=== PATIENT | female | born 2000 | race Caucasian/White ===

== ENCOUNTER 2023-09-03 10:45 | Outpatient (CLI) | payer OTHER, SELFPAY ==
[2023-09-03 12:05] LABS: Basophils Absolute Auto 0.1 K/mm3 (0.0-0.1); Basophils Percent Auto 0.6 % (0.2-1.2); Eosinophils Absolute Auto 0.2 K/mm3 (0-0.3); Hemoglobin 14.7 g/dL (12.0-15.0); Immature Granulocyte Absolute 0.05 K/mm3 (0.00-0.031); Immature Granulocyte Percent A 0.4 % (0-0.5); Lymphocytes Absolute Auto 3.48 K/mm3 (0.9-3.2); Lymphocytes Percent Auto 28.4 % (18.3-44.2); Mean Corpuscular HGB Conc 32.7 g/dl (32-36); Mean Corpuscular Hemoglobin 30.2 pg (26-34); Mean Corpuscular Volume 92.4 fl (80-100); Mean Platelet Volume 10.3 fl (7.4-10.4); Monocytes Absolute Auto 0.6 K/mm3 (0.1-0.6); Monocytes Percent Auto 4.8 % (2.6-8.5); Neutrophils Absolute Auto 7.8 K/mm3 (1.3-6.7); Neutrophils Percent Auto 63.8 % (45.5-73.1); Platelet Count Result 305 k/mm3 (150-375); Red Blood Count 4.87 M/mm3 (4.2-5.4); White Blood Count 12.2 K/mm3 (4.5-10.0)
[2023-09-03 12:12] LABS: Alanine Aminotransferase 34 U/L (6-35); Albumin Level 4.1 g/dL (3.5-5.1); Alkaline Phosphatase 103 U/L (38-126); Anion Gap 6 mmol/L (8-16); Aspartate Amino Transferase 34 U/L (14-36); Bilirubin,Total 0.4 mg/dL (0.2-1.3); Blood Urea Nitrogen 10 mg/dL (7-17); Calcium 8.9 mg/dL (8.4-10.2); Carbon Dioxide 27 mmol/L (22-30); Chloride 104 mmol/L (98-107); Estimated Glomerular Filt Rate > 60; Glucose 105 mg/dL (65-110); Potassium 3.9 mmol/L (3.4-5.0); Sodium 137 mmol/L (137-145)
[2023-09-03 12:28] LABS: Free T4 Free Thyroxine 1.05 ng/mL (0.78-2.19)
[2023-09-03 12:29] LABS: Vitamin D 25 Hydroxy < 12.8 ng/mL
[2023-09-03 12:42] LABS: Thyroid Stimulating Hormone 0.877 uIU/mL (0.465-4.680)
== END 2023-09-03 10:46 | disposition home or self-care (01) ==
LOC: ANHGOSHLAB 10:47
PROVIDERS: PCP Internal Medicine; Visit Provider Nurse Practitioner
DX: F32.A Depression, unspecified (principal); F41.9 Anxiety disorder, unspecified
CPT/HCPCS: 36415; 80053; 82306; 84439; 84443; 84481; 85025

== ENCOUNTER 2023-10-29 09:50 | Outpatient (CLI) | payer OTHER, SELFPAY ==
[2023-10-29 19:16] LABS: Cholesterol 166 mg/dL (0-200); HDL Direct 57 mg/dL; Triglycerides 71 mg/dL (<150)
[2023-10-29 19:32] LABS: LDL Cholesterol Direct 93 mg/dL
[2023-10-29 21:23] LABS: Hemoglobin A1C 5.9 % (<5.7)
[2023-10-31 12:30] LABS: DHEA-Sulfate 291 mcg/dL (18-391)
[2023-11-01 05:24] LABS: Insulin Level Total 37.6 uIU/mL (<=18.4)
[2023-11-01 12:53] LABS: Testosterone Total 83 ng/dL (2-45)
[2023-11-01 15:56] LABS: FSH 6.7 mIU/mL (***); Progesterone 0.4 ng/mL (***); Prolactin 10.3 ng/mL (***)
[2023-11-05 17:16] LABS: Free Insulin 46.7 uIU/mL (1.5-14.9)
[2023-11-06 01:01] LABS: Estradiol, Ultrasensitive 49 pg/mL
== END 2023-10-29 09:51 | disposition home or self-care (01) ==
LOC: ANHGOSHLAB 09:51
PROVIDERS: PCP Internal Medicine; Visit Provider Obstetrics & Gynecology
DX: N92.6 Irregular menstruation, unspecified (principal); E66.9 Obesity, unspecified
CPT/HCPCS: 36415; 80061; 82627; 82670; 83001; 83036; 83498; 83525; 83527; 84144; 84146; 84403

== ENCOUNTER 2024-12-26 13:39 | Outpatient (CLI) | payer OTHER, SELFPAY ==
--- OUTSIDE RECORDS SUMMARY | 2024-12-26 15:05 | XMS_ITS | Clinical Summary ---
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 Name Role Phone Unavailable Primary Care Provider Unavailabl e Active Problems No known active problems Encounters Date Type Department Care Team Description 12/13/2024 External Device Data [facility] Provider, Abstract 11/19/2024 External Device Data [facility] Provider, Abstract 11/19/2024 External Device Data [facility] Provider, Abstract 11/16/2024 External Device Data [facility] Provider, Abstract 11/02/2024 External Device Data [facility] Provider, Abstract 10/12/2024 External Device Data [facility] Provider, Abstract 10/06/2024 External Device Data [facility] Provider, Abstract from Last 3 Months Social History Tobacco Use Types Packs/Day Years Used Date Smoking Tobacco: Never Assessed Comments Unknown Sex and Gender Information Value Date Recorded Sex Assigned at Not on file 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 Gender Identity Not on file Sexual Orientation Not on file Last Filed Vital Signs Vital Sign Reading Time Taken Comments Blood Pressure 124/72 01/29/2024 11:02 AM CDT Pulse - - Temperature - - Respiratory Rate - - Oxygen Saturation - - Inhaled Oxygen Concentration - - Weight 87.5 kg (193 lb) 01/29/2024 11:02 AM CDT Height 154.9 cm (5' 1 ) 01/29/2024 11:02 AM CDT Body Mass Index 36.47 01/29/2024 11:02 AM CDT Plan of Treatment Health Maintenance Due Date Last Done Comments HPV VACCINES (1 - 3-dose series) 2013 DTAP/TDAP/TD VACCINES (1 - Tdap) 2017 HEPATITIS B VACCINES (1 of 3 - 19+ 3-dose series) 2017 CERVICAL CANCER SCREENING 2019 HPV/Cotest (21-29) 2019 PAP SMEAR 2019 PAP SMEAR 2019 INFLUENZA VACCINE (#1) 2024 PNEUMOCOCCAL VACCINE 0-49 YEARS Aged Out No longer eligible based on patient's age to complete this topic Insurance ALLEGIANCE OPEN ACCESS ALLEGIANCE OPEN ACCESS
[2024-12-26 18:59] LABS: Basophils Absolute Auto 0.1 K/mm3 (0.0-0.1); Basophils Percent Auto 0.6 % (0.2-1.2); Eosinophils Absolute Auto 0.4 K/mm3 (0-0.3); Eosinophils Percent Auto 3.1 % (0-4.4); Hematocrit 44.5 % (37.0-47.0); Hemoglobin 14.7 g/dL (12.0-15.0); Immature Granulocyte Absolute 0.05 K/mm3 (0.00-0.031); Immature Granulocyte Percent A 0.4 % (0-0.5); Lymphocytes Absolute Auto 4.42 K/mm3 (0.9-3.2); Lymphocytes Percent Auto 34.8 % (18.3-44.2); Mean Corpuscular Volume 90.8 fl (80-100); Monocytes Absolute Auto 0.9 K/mm3 (0.1-0.6); Monocytes Percent Auto 7.1 % (2.6-8.5); Neutrophils Absolute Auto 6.9 K/mm3 (1.3-6.7); Platelet Count Result 325 k/mm3 (150-375); Red Cell Distribution Width 12.3 % (11.5-14.5); White Blood Count 12.7 K/mm3 (4.5-10.0)
[2024-12-26 20:42] LABS: Alanine Aminotransferase 23 U/L (6-35); Albumin Level 4.1 g/dL (3.5-5.1); Alkaline Phosphatase 93 U/L (38-126); Anion Gap 8 mmol/L (4-12); Aspartate Amino Transferase 48 U/L (14-36); Bilirubin,Total 0.3 mg/dL (0.2-1.3); Blood Urea Nitrogen 12 mg/dL (7-17); Calcium 9.2 mg/dL (8.4-10.2); Carbon Dioxide 27 mmol/L (22-30); Chloride 104 mmol/L (98-107); Estimated Glomerular Filt Rate > 60; Glucose 108 mg/dL (65-110); Potassium 4.5 mmol/L (3.4-5.0); Sodium 139 mmol/L (137-145)
[2024-12-26 20:58] LABS: Vitamin D 25 Hydroxy 19.8 ng/mL
[2024-12-26 22:07] LABS: Hemoglobin A1C 5.5 % (<5.7)
[2024-12-29 05:34] LABS: Immunoglobulin A 278 mg/dL (47-310); TTG IGA AB <1.0 U/mL
== END 2024-12-26 13:40 | disposition home or self-care (01) ==
LOC: ANHGOSHLAB 13:40
PROVIDERS: PCP Internal Medicine; Visit Provider Clinical Nurse Specialist
DX: I10 Essential (primary) hypertension (principal); E55.9 Vitamin D deficiency, unspecified; D72.829 Elevated white blood cell count, unspecified; R73.01 Impaired fasting glucose; R10.84 Generalized abdominal pain; Z13.228 Encounter for screening for other metabolic disorders
CPT/HCPCS: 36415; 80053; 82306; 82784; 83036; 83516; 84443; 85025

== ENCOUNTER 2025-01-02 14:51 | Outpatient (CLI) | payer OTHER, SELFPAY ==
--- OUTSIDE RECORDS SUMMARY | 2025-01-02 16:50 | XMS_ITS | Clinical Summary ---
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
[2025-01-02 19:36] LABS: Basophils Absolute Auto 0.1 K/mm3 (0.0-0.1); Basophils Percent Auto 0.6 % (0.2-1.2); Eosinophils Absolute Auto 0.3 K/mm3 (0-0.3); Eosinophils Percent Auto 2.5 % (0-4.4); Hematocrit 44.6 % (37.0-47.0); Hemoglobin 14.8 g/dL (12.0-15.0); Immature Granulocyte Absolute 0.05 K/mm3 (0.00-0.031); Immature Granulocyte Percent A 0.4 % (0-0.5); Lymphocytes Absolute Auto 3.64 K/mm3 (0.9-3.2); Lymphocytes Percent Auto 26.3 % (18.3-44.2); Mean Corpuscular HGB Conc 33.2 g/dl (32-36); Mean Corpuscular Hemoglobin 29.8 pg (26-34); Mean Corpuscular Volume 89.7 fl (80-100); Mean Platelet Volume 10.5 fl (7.4-10.4); Monocytes Absolute Auto 0.8 K/mm3 (0.1-0.6); Monocytes Percent Auto 5.6 % (2.6-8.5); Neutrophils Percent Auto 64.6 % (45.5-73.1); Platelet Count Result 335 k/mm3 (150-375); Red Blood Count 4.97 M/mm3 (4.2-5.4); Red Cell Distribution Width 12.4 % (11.5-14.5); White Blood Count 13.8 K/mm3 (4.5-10.0)
[2025-01-02 19:44] LABS: CRP 0.7 mg/dL (<1.0)
[2025-01-03 03:19] LABS: Erythrocyte Sedimentation Rate 14 mm/hr (0-20)
== END 2025-01-02 14:52 | disposition home or self-care (01) ==
LOC: ANHGOSHLAB 14:52
PROVIDERS: PCP Clinical Nurse Specialist; Visit Provider Clinical Nurse Specialist
DX: D72.829 Elevated white blood cell count, unspecified (principal); I10 Essential (primary) hypertension; E88.819 Insulin resistance, unspecified; R10.84 Generalized abdominal pain; Z13.228 Encounter for screening for other metabolic disorders
CPT/HCPCS: 36415; 85025; 85652; 86140

== ENCOUNTER 2025-04-04 11:18 | Emergency (ER) | payer OTHER, SELFPAY ==
[2025-04-04 11:34] VITALS: BP 140/83; PULSE 83; RESP 16; TEMP 36.2; O2SAT 99
--- NOTE | 2025-04-04 12:55 | ED.NAVMDI ---
HPI - Nausea/Vomiting/Diarrhea General Chief complaint: Nausea/Vomiting/Diarrhea Stated complaint: Nausea,Diarrhea,Vomiting,Headache Time Seen by Provider: 04/04/25 12:20 24-year-old female Presents Express Care complaining of nausea, vomiting, diarrhea for 1 week. Patient said 1 week ago she ate frozen chicken that she cooked and develops symptoms after that. Patient reports having abdominal cramping. Patient denies any abdominal pain, fevers, body aches, chills. Patient last vomited approximately for hours ago. Patient has been able to keep fluids down since vomiting. Patient said his only vomited 3 to 4 times. Patient reports loose stools. Patient denies any blood or mucus in stools. Patient has not tried any pglx-oho-[id number] for relief. Patient denies recent travel outside the country. Source: patient and RN notes reviewed Mode of arrival: ambulatory Limitations: no limitations Related Data Allergies Allergy/AdvReac Type Severity Reaction Status Date / Time No Known Allergies Allergy Verified 04/04/25 11:46 Review of Systems Review of Systems: CONSTITUTIONAL: Denies fever, chills, body aches, or sweats. EYES: Denies visual changes, redness, or discharge. ENT: Denies rhinorrhea, congestion, sore throat, or otalgia. CARDIOVASCULAR: Denies chest pain, palpitations, or edema. RESPIRATORY: Denies cough or dyspnea. GASTROINTESTINAL: Denies abdominal pain, bloody stools, hematochezia. Positive for nausea, vomiting, and diarrhea. GENITOURINARY: Denies dysuria or hematuria. SKIN: Denies rash or itching. MUSCULOSKELETAL: Denies back pain, joint pain, or myalgia. NEUROLOGIC: Denies headache, numbness, or weakness. PSYCHIATRIC: Denies anxiety or depression. All other systems reviewed are negative, except as documented in HPI. [facility] Past Medical History Medical History Hospital discharge follow-up Encounter for completion of form with patient PCOS (polycystic ovarian syndrome) Anxiety Hard of hearing Hypertension Surgical History Surgical History History of placement of ear tubes 1999 Family History Family History Mother Hypertension Father Hypertension Heart disease Hard of hearing Diabetes mellitus Social History Social History Smoking status: Never smoker Alcohol intake: never Substance use: never Substance use type: does not use Do You Feel Safe in your Home?: Yes Lack of Transportation: No Lack of Food: Sometimes True Current Housing: I Have Housing Concerned About Future Housing: No Difficulty Paying Gas/Electric Bills: No Difficulty Paying for Meds: No Currently Unemployed: No Education: High School Diploma/GED Difficulty w/ Childcare or Family Care: No Living arrangements: with family Occupation/Education: occupation Additional occupation/education comments: [employer] Gender identity (if verbalized by the patient): Female Sexual Orientation (if Verbalized by the Patient): Straight or Heterosexual Exam Narrative: GENERAL: This is a well-nourished, well-developed adult, in no apparent distress. They are non ill-appearing, nontoxic appearing. HEAD: normocephalic, atraumatic. EYES: Sclera clear/white. Vision is grossly intact. Conjunctiva normal bilaterally. Extraocular movements intact. EARS: External ears normal, Hearing grossly intact. NOSE: External nose normal THROAT: Mucous membranes moist NECK: Normal range of motion CARDIOVASCULAR: Regular rate and rhythm. Normal S1-S2. Clicks, gallops, murmurs, or rubs. RESPIRATORY: Respiratory rate normal, respiratory effort nonlabored, no respiratory distress. Lungs are clear to auscultation. Lung sounds equal bilaterally. No adventitious lung sounds. GASTROINTESTINAL: Abdomen soft, flat, non-tender, nondistended. Bowel sounds are active. No hepato-splenomegaly, or palpable masses. No guarding or rigidity. No rebound tenderness. SKIN: warm, Dry, intact with no suspicious lesions or rash, good texture and turgor. NEURO: awake, alert, and oriented to person, place and time. There were no obvious focal neurologic abnormalities. EXTREMITIES: No joint tenderness, effusion, or edema noted. BACK: Nontender without deformity. No CVA tenderness. Course Course Emergency Course: Portions of this record may have been created with voice recognition software Level of Care: Express Care Visit Vital Signs Vital signs: Vital Signs Temperature 97.2 F L 04/04/25 11:34 Pulse Rate 83 04/04/25 11:34 Respiratory Rate 16 04/04/25 11:34 Blood Pressure 140/83 04/04/25 11:34 Pulse Oximetry 99 04/04/25 11:34 Temperature 97.2 F L 04/04/25 11:34 Pulse Rate 83 04/04/25 11:34 Respiratory Rate 16 04/04/25 11:34 Blood Pressure 140/83 04/04/25 11:34 Pulse Oximetry 99 04/04/25 11:34 MDM - Nausea/Vomiting/Diarrhea MDM Narrative Medical decision making narrative: Symptoms likely has a gastroenteritis. Will prescribe Zofran as needed for nausea and vomiting. Recommend Pepto-Bismol to help with diarrhea. Patient does not appear clinically dehydrated. Patient has been able to keep fluids down. Discussed physical exam findings. Advised supportive measures and signs/symptoms to go to the ER. Pt is appropriate for outpt treatment and f/u. Differential Diagnosis Differential diagnosis: Likely traveler's diarrhea, food poisoning, gastroenteritis and dehydration Discharge Plan Discharge Clinical Impression: Nausea vomiting and diarrhea Patient Disposition: Home Condition: Stable Instructions: Gastroenteritis (ED) Additional Instructions: It is likely you have gastroenteritis. You may take Pepto-Bismol as needed for diarrhea. This may make your stool black/green. Recommend hydration with plenty of fluids electrolyte supplementation such as Pedialyte. Follow-up PCP in 3-5 days. You may take Zofran as needed for nausea or vomiting. Your unable to keep anything down, he developed abdominal pain, fevers, uncontrollable diarrhea, concerns of dehydration, or any other concerns please go to the ER immediately. Patient Language: Citizen Of [place] Prescriptions: New ondansetron 4 mg tablet,disintegrating 4 mg PO Q8H PRN (Reason: nausea and vomiting) Qty: 12 0RF Follow-up/Referrals: Abi Coyne FNP-C [Primary Care Provider] - Time of Disposition: 12:22
== END 2025-04-04 12:56 | disposition home or self-care (01) ==
PROVIDERS: PCP Clinical Nurse Specialist
DX: R11.2 Nausea with vomiting, unspecified (principal); R19.7 Diarrhea, unspecified; I10 Essential (primary) hypertension; E28.2 Polycystic ovarian syndrome
CPT/HCPCS: 99213; G0463

== ENCOUNTER 2025-05-26 15:58 | Emergency (ER) | payer OTHER, SELFPAY ==
[2025-05-26 16:09] VITALS: BP 144/95; PULSE 89; RESP 16; TEMP 36.6; O2SAT 99
--- NOTE | 2025-05-26 17:12 | ED_ITS ---
HPI - URI/Sore Throat General Chief Complaint: Upper Respiratory Infection Stated Complaint: SINUS/CHEST CONGESTION Source: patient and RN notes reviewed Mode of arrival: ambulatory Limitations: no limitations History of Present Illness HPI Narrative: 24-year-old female presents Express Care complaining of upper respiratory symptoms for last 5 days. Patient reports cough, congestion, wheezing, chest congestion, body aches, chills, and runny nose. Denies any chest pain or difficulty breathing, earache my nausea, vomiting, diarrhea, abdominal pain, or any other symptoms. Patient tried giyn-cym-tawcntn cold/flu medication without relief. Patient denies any significant past medical history. Patient denies smoking. Related Data Allergies Allergy/AdvReac Type Severity Reaction Status Date / Time No Known Allergies Allergy Verified 05/26/25 16:44 Review of Systems Review of Systems: CONSTITUTIONAL: Denies fever, or sweats. As for body aches and chills. EYES: Denies visual changes, redness, or discharge. ENT: Positive for rhinorrhea, congestion Negative sore throat or otalgia. CARDIOVASCULAR: Denies chest pain, palpitations, dizziness, lightheadedness or edema. RESPIRATORY: Positive cough wheezing. Negative for dyspnea. GASTROINTESTINAL: Denies abdominal pain, nausea, vomiting, or diarrhea. GENITOURINARY: Denies dysuria or hematuria. SKIN: Denies rash or itching. MUSCULOSKELETAL: Denies back pain, joint pain, or myalgia. NEUROLOGIC: Denies headache, numbness, loss of consciousness or weakness. PSYCHIATRIC: Denies anxiety or depression. All other systems reviewed are negative, except as documented in HPI. [facility] Past Medical History Medical History Hospital discharge follow-up Encounter for completion of form with patient PCOS (polycystic ovarian syndrome) Anxiety Hard of hearing Hypertension Surgical History Surgical History History of placement of ear tubes 1999 Family History Family History Mother Hypertension Father Hypertension Heart disease Hard of hearing Diabetes mellitus Social History Social History Smoking status: Never smoker Alcohol intake: never Substance use: never Substance use type: does not use Do You Feel Safe in your Home?: Yes Lack of Transportation: No Lack of Food: Sometimes True Current Housing: I Have Housing Concerned About Future Housing: No Difficulty Paying Gas/Electric Bills: No Difficulty Paying for Meds: No Currently Unemployed: No Education: High School Diploma/GED Difficulty w/ Childcare or Family Care: No Living arrangements: with family Occupation/Education: occupation Additional occupation/education comments: [employer] Gender identity (if verbalized by the patient): Female Sexual Orientation (if Verbalized by the Patient): Straight or Heterosexual Comments At the time of my signature, I reviewed and agree with the nursing past medical, surgical, social, and family history. There is no relevant family history pertinent to the patient complaint. Exam Narrative: GENERAL: This is a well-nourished, well-developed adult, in no apparent distress. They are non ill-appearing, nontoxic appearing. HEAD: normocephalic, atraumatic. EYES: Sclera clear/white. Conjunctiva normal. Vision is grossly intact. Extraocular movements intact EARS: External ears normal, auditory canals clear and without drainage, TMs normal without perforation. Hearing grossly intact. NOSE: External nose normal with no obvious nasal discharge, nasal turbinates erythematous, with clear rhinorrhea. THROAT: Mucous membranes moist, posterior pharynx boggy with without erythema. Uvula midline. Postnasal drip present. NECK: Neck supple, non-tender without lymphadenopathy, masses or thyromegaly. CARDIOVASCULAR: Regular rate and rhythm without murmurs, gallops, or rubs. RESPIRATORY: Clear to auscultation. Breath sounds equal bilaterally. No wheezes, rales, or rhonchi. Respiratory rate normal, respiratory effort nonlabored, no respiratory distress SKIN: warm, Dry, intact with no suspicious lesions or rash, good texture and turgor. NEURO: awake, alert, and oriented to person, place and time. There were no o bvious focal neurologic abnormalities. EXTREMITIES: No joint tenderness, effusion, or edema noted. Course Course Emergency Course: Portions of this record may have been created with voice recognition software Level of Care: Express Care Visit Vital Signs Vital signs: Vital Signs Temperature 98 F 05/26/25 16:09 Pulse Rate 89 05/26/25 16:09 Respiratory Rate 16 05/26/25 16:09 Blood Pressure 144/95 H 09/12/25 16:09 Pulse Oximetry 99 05/26/25 16:09 Temperature 98 F 05/26/25 16:09 Pulse Rate 89 05/26/25 16:09 Respiratory Rate 16 05/26/25 16:09 Blood Pressure 144/95 H 05/26/25 16:09 Pulse Oximetry 99 05/26/25 16:09 Oxygen Delivery Room Air 05/26/25 16:45 Reviewed MDM - URI/Sore Throat MDM Narrative Medical decision making narrative: Patient likely has a viral bronchitis. Given severity of symptoms will give her course of Medrol Dosepak. Will also prescribe benzonatate tablets as needed for cough. Discussed physical exam findings. Advised supportive measures and signs/symptoms to go to the ER. Pt is appropriate for outpt treatment and f/u. Differential Diagnosis Differential diagnosis: Likely upper respiratory infection, sinusitis, viral infection and bronchitis Critical Care Time Critical Care Time Critical Care Time: No Discharge Plan Discharge Clinical Impression: Bronchitis Patient Disposition: Home Condition: Stable Instructions: Acute Bronchitis (ED) Additional Instructions: Take Medrol Dosepak as directed. Take benzonatate tablets as needed for cough. Recommend Flonase spray 2 sprays each nostril daily for the next week You may take Zyrtec as needed for congestion. Follow instructions on the bottle. You may take ibuprofen 600 mg to 800 mg every 6-8 hours. Do not exceed more than 800 mg of ibuprofen per dose. Do not exceed more than 3200 mg ibuprofen in a day. You may take up to 1000 mg Tylenol every 6-8 hours. Do not exceed 1000 mg per dose, do exceed more than 4000 mg of Tylenol in a day. Symptomatic treatment includes: rest, fluids, and increase humidity of the air at home. Follow up with your primary care provider as needed in 1 week Go to the ER if he develop chest pain, difficulty breathing, nausea, vomiting, worsening fevers, worsening symptoms, or any serious concerns. Patient Language: Montene[place] Prescriptions: New benzonatate 100 mg capsule 100 mg PO TID PRN (Reason: cough) Qty: 20 0RF methylprednisolone 4 mg tablets,dose pack See Rx Instructions .ROUTE .COMPLEX Qty: 21 0RF Rx Instructions: for 6 days No Action ondansetron 4 mg tablet,disintegrating 4 mg PO Q8H PRN (Reason: nausea and vomiting) Qty: 12 0RF Follow-up/Referrals: Abi Coyne, MARKETING DEVELOPMENT MANAGER-C [Primary Care Provider, Internal Medicine] Time of Disposition: 17:10
--- NOTE | 2025-05-26 17:36 | PC.NURSE ---
RN to room to discharge Pt and room was empty. Pt's belongings are gone.
== END 2025-05-26 17:36 | disposition home or self-care (01) ==
PROVIDERS: PCP Clinical Nurse Specialist
DX: J40 Bronchitis, not specified as acute or chronic (principal); I10 Essential (primary) hypertension; E28.2 Polycystic ovarian syndrome
CPT/HCPCS: 99213; G0463

== ENCOUNTER 2025-07-31 11:26 | Outpatient (CLI) | payer OTHER, SELFPAY ==
[2025-07-31 13:03] LABS: Hematocrit 44.0 % (37.0-47.0); Hemoglobin 14.6 g/dL (12.0-15.0); Immature Granulocyte Percent A 0.4 % (0-0.5); Lymphocytes Absolute Auto 3.94 K/mm3 (0.9-3.2); Mean Corpuscular HGB Conc 33.2 g/dl (32-36); Mean Corpuscular Hemoglobin 29.9 pg (26-34); Mean Corpuscular Volume 90.2 fl (80-100); Nucleated Red Blood Cells Absolute Auto 0.000 K/mm3 (0.0-0.012); Nucleated Red Blood Cells Perc 0.0 % (0.0-0.2); Platelet Count Result 347 k/mm3 (150-375); Red Blood Count 4.88 M/mm3 (4.2-5.4); White Blood Count 12.1 K/mm3 (4.5-10.0)
[2025-07-31 13:11] LABS: Alanine Aminotransferase 25 U/L (6-35); Albumin Level 4.1 g/dL (3.5-5.1); Alkaline Phosphatase 89 U/L (38-126); Anion Gap 8 mmol/L (4-12); Aspartate Amino Transferase 50 U/L (14-36); Bilirubin,Total 0.3 mg/dL (0.2-1.3); Blood Urea Nitrogen 15 mg/dL (7-17); Calcium 9.2 mg/dL (8.4-10.2); Carbon Dioxide 27 mmol/L (22-30); Chloride 104 mmol/L (98-107); Estimated Glomerular Filt Rate > 60; Glucose 109 mg/dL (65-110); Potassium 3.8 mmol/L (3.4-5.0); Sodium 139 mmol/L (137-145); Total Protein 7.4 g/dL (6.3-8.2)
[2025-07-31 13:46] LABS: Thyroid Stimulating Hormone 0.866 uIU/mL (0.465-4.680)
[2025-07-31 14:53] LABS: Hemoglobin A1C 5.6 % (<5.7)
== END 2025-07-31 11:27 | disposition home or self-care (01) ==
LOC: ANHGOSHLAB 11:27
PROVIDERS: PCP Clinical Nurse Specialist; Visit Provider Clinical Nurse Specialist
DX: I10 Essential (primary) hypertension (principal); D72.829 Elevated white blood cell count, unspecified; E28.2 Polycystic ovarian syndrome; R73.01 Impaired fasting glucose
CPT/HCPCS: 36415; 80053; 83036; 84443; 85025